=== PATIENT | female | born 1955 | race Caucasian/White ===

== ENCOUNTER → 2019-09-04 12:30 | Outpatient (CLI) | payer OTHER, SELFPAY ==
--- NOTE | ~2019-09-04 | MM_ITS ---
EXAMINATION: MM screening annmarie BI w heriberto HISTORY: Screening mammogram TECHNIQUE: Craniocaudal and mediolateral oblique 3-D tomosynthesis images were obtained and synthetic 2-D images were generated. CAD analysis was submitted and interpreted. COMPARISON: Comparison to multiple prior studies sequentially, with oldest reviewed study dated 08/08. BREAST PARENCHYMAL COMPOSITION: There are scattered areas of fibroglandular density. FINDINGS: Stable benign-appearing breast calcifications. There is no evidence of suspicious mass, carla cification, or architectural distortion to suggest malignancy in either breast. There has been no donna picious interval change. IMPRESSION: 1. No mammographic evidence of malignancy. 2. Recommend routine screening mammography in one year. BI-RADS Category 2: Benign finding(s). Reviewed, dictated and finalized at location A. [employer] SUPERVISOR
== END ==
PROVIDERS: PCP Family Medicine Adolescent Medicine; Visit Provider Family Medicine Adolescent Medicine
DX: Z12.31 Encounter for screening mammogram for malignant neoplasm of breast (principal)
CPT/HCPCS: 77063; 77067

== ENCOUNTER → 2020-07-14 10:04 | Outpatient (CLI) | payer OTHER, SELFPAY ==
--- NOTE | ~2020-07-14 | XR_ITS ---
XR knee LT min 4V DATE: 07/14/2020 10:20 INDICATION: Left knee pain TECHNIQUE: Standing AP, PA and lateral views. Sandpoint view. COMPARISON: 01/16/2018 left knee FINDINGS: There is mild periarticular spurring of the patella. Mild loss of height of medial compartm ent joint; joint spaces otherwise appear relatively preserved. No fracture or dislocation or joint effusion, radiopaque intra-articular loose body or chondrocalcino sis is evident. 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 D SECURITY OFFICER
== END ==
PROVIDERS: Visit Provider Physician Assistant
DX: M17.12 Unilateral primary osteoarthritis, left knee (principal)
CPT/HCPCS: 73564

== ENCOUNTER 2021-03-26 01:46 | Day surgery (SDC) | payer OTHER, SELFPAY ==
[2021-03-25 10:22] VITALS: BMI 29.2
[2021-03-26 07:58] VITALS: BP 150/87; PULSE 81; RESP 16; TEMP 36.7; O2SAT 97; BMI 28.6
--- NOTE | 2021-03-26 08:09 | P.PNAN_ITS ---
Anes - Initial Pre Proc Eval Procedure: Operation Date: 03/26/21 09:00 Proposed Procedures p Esophagogastroduodenoscopy & Screening Colonoscopy - Danny Jones MD Date/Time: 03/26/21 08:09 Surgeon: Danny Jones MD Pre Op Diagnosis: neoplasm screening, epigastric pain Patient Data Age: 65 Gender: F Height: 1.6 m Weight: 73.4 kg Last Vital Signs Temp 36.7 C 03/26/21 07:58 Pulse 81 03/26/21 07:58 Resp 16 03/26/21 07:58 BP 150/87 H 03/26/21 07:58 Pulse Ox 97 03/26/21 07:58 Allergies Allergy/AdvReac Type Severity Reaction Status Date / Time Penicillins Allergy Mild RASH Verified 03/26/21 07:57 PROCAINE HCL Allergy Intermediate FACIAL Uncoded 03/26/21 07:57 SWELLING Home Medications Medication Instructions Recorded Confirmed Type multivitamin 1 tablet PO DAILY 02/19/21 03/25/21 History Patient hx anesthesia problems: none Family hx anesthesia problems: none [facility] Past Medical History Medical History (Updated 02/19/21 @ 15:26 by Danny Jones MD) Acute arthritis Anemia Cataract Right eye Colitis Tonsillitis Surgical History Surgical History (Updated 02/19/21 @ 15:08 by Zuri Gray) H/O dilation and curettage Family History Family History (Updated 02/19/21 @ 15:09 by Zuri Gray) Mother Asthma Heart disease Cerebrovascular accident Disorder of thyroid Father Malignant neoplasm of prostate Sibling Asthma Unknown Asthma Grandparent Asthma Carcinoma of colon Social History Social History (Updated 02/19/21 @ 15:10 by Zuri Gray) Smoking status: Never smoker Alcohol intake: current Drinks per week: 2 Alcohol use details: rarely Substance use: never Substance use type: does not use Living arrangements: with family Spiritual care concerns: No Anes - Eval Final PreProcedure Day of Procedure 03/26/21 08:09 Patient weight: overweight Heart: regular rate and rhythm Lungs: clear to auscultation and normal air movement Airway: Mallampati scale class II Neurological: alert and oriented Last oral intake: >/= 8 hours ASA classification: II Emergent: no Anesthetic plan: proceed Anesthesia type and monitoring: general GIVS Informed Consent: The patient's anesthetic plan and its attendant risks and benefits were discussed with the patient/family/POA. Questions were solicited and answers provided to the satisfaction of the patient/family/POA.
[2021-03-26] MEDS: LACTATED RINGERS 1,000 ML 150 ML IV CONT (08:12)
--- NOTE | 2021-03-26 08:48 | WPDHPUPDATE1 ---
History and Physical Update Update Date/Time: 03/26/21 08:48 History and Physical has been reviewed, including an updated exam of the patient. There are NO changes in the patient's condition. Risks, benefits, and alternatives have been discussed and questions answered. Patient agrees to proceed with procedure.
--- NOTE | 2021-03-26 09:20 | SUR.OPER ---
EGD ENDED AT 902, COLONOSCOPY STARTED 906
[2021-03-26 09:21] VITALS: BP 108/84; PULSE 64; RESP 16; O2SAT 98
[2021-03-26 09:31] VITALS: BP 103/51; PULSE 63; RESP 16; O2SAT 100
[2021-03-26 09:40] VITALS: BP 126/67; PULSE 58; RESP 16; O2SAT 100
--- NOTE | 2021-03-27 13:55 | WPDGICN ---
Assessment and Plan Assessment and plan (1) Family history of malignant neoplasm of colon in relative diagnosed when younger than 50 years of age: Code(s): Z80.0 - Family history of malignant neoplasm of digestive organs Status: Acute Assessment and Plan: Colonoscopy will be performed because of family history of colon cancer and paternal grandparent as well as an aunt. It has been 9 or 10 years since last exam. Colonoscopy will be performed also to evaluate for abdominal pain. (2) Epigastric abdominal pain: Code(s): R10.13 - Epigastric pain Status: Acute Assessment and Plan: Patient complains of epigastric abdominal cramping. Gallbladder ultrasound unremarkable. Plan to proceed with EGD to evaluate this more thoroughly. Further recommendations after endoscopy. GI Consult Note Consult date/time: 03/27/21 13:55 HPI: Janessa Mann is a 65 year old female Presents for colonoscopy on 03/26/2021. She is seen in evaluation at the request of Dr. Bennett. Patient reports that she has had episodes of abdominal pain for at least 7 years. Patient reports he has pains occur at least 1 time a week. Associated with cramps that progressed to nausea vomiting. These episodes will last for [id number]. She denies any specific precipitating or alleviating factors. Patient denies a fever. Patient denies any bleeding. She reports her bowel habits are regular. She denies any weight loss. Family history noncontributory. Patient had a colonoscopy done approximately 10 years ago. She recently notes the pain and cramps are occur in the upper abdomen epigastric area. Gallbladder ultrasound 2019 was unremarkable. Patient presents on 03/26 for GI endoscopy. Review of Systems Review of Systems: All systems reviewed & are unremarkable except as noted in HPI and below PMFSH Past Medical History Medical History (Updated 02/19/21 @ 15:26 by Danny Jones MD) Acute arthritis Anemia Cataract Right eye Colitis Tonsillitis Surgical History Surgical History (Updated 02/19/21 @ 15:08 by Zuri Gray) H/O dilation and curettage Family History Family History (Updated 02/19/21 @ 15:09 by Zuri Gray) Mother Asthma Heart disease Cerebrovascular accident Disorder of thyroid Father Malignant neoplasm of prostate Sibling Asthma Unknown Asthma Grandparent Asthma Carcinoma of colon Social History Social History (Updated 02/19/21 @ 15:10 by Zuri Gray) Smoking status: Never smoker Alcohol intake: current Drinks per week: 2 Alcohol use details: rarely Substance use: never Substance use type: does not use Living arrangements: with family Spiritual care concerns: No Meds Home Medications and Allergies Home Medications Medication Instructions Recorded Confirmed Type multivitamin 1 tablet PO DAILY 02/19/21 03/25/21 History Allergies Allergy/AdvReac Type Severity Reaction Status Date / Time Penicillins Allergy Mild RASH Verified 03/26/21 07:57 PROCAINE HCL Allergy Intermediate FACIAL Uncoded 03/26/21 07:57 SWELLING Exam Narrative: Physical exam reveals patient to be alert. Comfortable at rest. HEENT exam is unremarkable. Patient is anicteric. Lungs are clear. Heart without murmur. Abdomen bowel sounds present soft nontender with no hepatosplenomegaly. Digital external rectal exam normal.
== END 2021-03-26 09:55 | disposition home or self-care (01) ==
PROVIDERS: PCP Family Medicine Adolescent Medicine; Visit Provider Internal Medicine Gastroenterology
PROC: 0DJ08ZZ Inspection of Upper Intestinal Tract, Via Natural or Artificial Opening Endoscopic (ICD-10-PCS; CPT 43235; principal; 2021-03-26 09:00)
DX: Z12.11 Encounter for screening for malignant neoplasm of colon (principal); R10.84 Generalized abdominal pain; K57.30 Diverticulosis of large intestine without perforation or abscess without bleeding; K64.8 Other hemorrhoids; Z80.0 Family history of malignant neoplasm of digestive organs; R11.10 Vomiting, unspecified; R10.13 Epigastric pain; R10.30 Lower abdominal pain, unspecified; D64.9 Anemia, unspecified
CPT/HCPCS: 43239; G0105; 87081; J2704; J7120

== ENCOUNTER → 2021-11-30 10:53 | Outpatient (CLI) | payer OTHER, SELFPAY ==
--- NOTE | ~2021-11-30 | MM_ITS ---
EXAMINATION: MM screening annmarie BI w heriberto HISTORY: Screening mammogram TECHNIQUE: Craniocaudal and mediolateral oblique 3-D tomosynthesis images were obtained and synthetic 2-D images were generated. CAD analysis was submitted and interpreted. COMPARISON: 09/04/2019, 06/14/2018, 08/30/2016 bilateral screening mammogram examinations BREAST PARENCHYMAL COMPOSITION: There are scattered areas of fibroglandular density. FINDINGS: No suspicious mass or architectural distortion, malignant calcification, skin thickening or retraction or significant new or developing density is detected. IMPRESSION: 1. No mammographic evidence of malignancy. 2. Recommend routine screening mammography in one year. BI-RADS Category 1: Negative Reviewed, dictated and finalized at location A.
== END ==
PROVIDERS: PCP Family Medicine Adolescent Medicine; Visit Provider Family Medicine Adolescent Medicine
DX: Z12.31 Encounter for screening mammogram for malignant neoplasm of breast (principal)
CPT/HCPCS: 77063; 77067

== ENCOUNTER 2024-01-23 15:45 | Outpatient (CLI) | payer OTHER, SELFPAY ==
--- NOTE | ~2024-01-23 | MM_ITS ---
EXAMINATION: MM screening annmarie BI w heriberto HISTORY: Screening TECHNIQUE: Craniocaudal and mediolateral oblique 3-D tomosynthesis images were obtained and synthetic 2-D images were generated. CAD analysis was submitted and interpreted. COMPARISON: Comparison to multiple prior studies sequentially, with oldest reviewed study dated 09/03. BREAST PARENCHYMAL COMPOSITION: Not dense: There are scattered areas of fibroglandular density. FINDINGS: There is no evidence of suspicious mass, calcification, or architectural distortion to sugg est malignancy in either breast. There has been no suspicious interval change. IMPRESSION: 1. No mammographic evidence of malignancy. 2. Recommend routine screening mammography in one year. BI-RADS Category 1: Negative Reviewed, dictated and finalized at location B.
== END 2024-01-23 15:46 ==
LOC: MICIMG 15:46
PROVIDERS: PCP Family Medicine Adolescent Medicine; Visit Provider Family Medicine Adolescent Medicine
DX: Z12.31 Encounter for screening mammogram for malignant neoplasm of breast (principal)
CPT/HCPCS: 77063; 77067